=== PATIENT | female | born 1940 | race Caucasian/White ===

== ENCOUNTER → 2017-10-27 | Outpatient (CLI) | payer MEDICARE, OTHER ==
[~2017-10-27] MED LIST: NOCURR
== END | disposition home or self-care (01) ==
LOC: RADPV 13:23
PROVIDERS: ATTEND Family Medicine
DX: M47.898 Other spondylosis, sacral and sacrococcygeal region (principal); M53.3 Sacrococcygeal disorders, not elsewhere classified
CPT/HCPCS: 72220

== ENCOUNTER 2020-07-11 11:23 | Emergency (ER) | payer MEDICARE, OTHER ==
[~2020-07-11] VITALS: Ht 172.7 cm; Wt 118.2 kg
[2020-07-11 14:25] VITALS: BP 146/64
== END 2020-07-11 14:29 | disposition home or self-care (01) ==
LOC: EMS 11:24
DX: T16.2XXA Foreign body in left ear, initial encounter (principal); H66.42 Suppurative otitis media, unspecified, left ear; H60.92 Unspecified otitis externa, left ear; X58.XXXA Exposure to other specified factors, initial encounter; Y93.89 Activity, other specified; Y92.89 Other specified places as the place of occurrence of the external cause; Y99.8 Other external cause status
CPT/HCPCS: 69200; Z7502